=== PATIENT | male | born 1980 | race Caucasian/White ===

== ENCOUNTER 2023-11-03 15:51 | Outpatient (AMB) | payer BC, SELFPAY ==
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
[2023-11-03 15:59] VITALS: BP 110/80; PULSE 67; O2SAT 98; BMI 28.1
== END 2023-11-04 08:25 | disposition home or self-care (01) ==
PROVIDERS: PCP Family Medicine; Visit Provider Nurse Practitioner Family
DX: G24.3 Spasmodic torticollis (principal)
CPT/HCPCS: 99204

== ENCOUNTER → 2023-11-03 15:51 | Outpatient (BNVA) | payer BC, SELFPAY | PROVIDERS: PCP Family Medicine; Visit Provider Nurse Practitioner Family ==

== ENCOUNTER 2023-11-05 11:58 | Outpatient (REF) | payer BC, SELFPAY ==
[2023-11-05 12:13] LABS: MANUAL DIFF FLAG NO
[2023-11-05 12:48] LABS: Basophils Absolute Auto 0.1 X10*3/uL (0.0-0.2); Eosinophils Absolute Auto 0.1 X10*3/uL (0.0-0.4); Eosinophils Percent Auto 1.3 % (0-4); Hematocrit 43.8 % (42.0-52.0); Hemoglobin 15.1 g/dl (14.0-18.0); Imm Gran Abs Auto 0.01 X10*3/uL (0.00-0.03); Imm Gran Pct Auto 0.2 % (0.0-0.4); Lymphocytes Absolute Auto 1.6 X10*3/uL (1.2-4.9); Lymphocytes Percent Auto 25.6 % (20-40); Mean Corpuscular HGB Conc 34.5 g/dl (31.0-36.0); Mean Corpuscular Hemoglobin 31.3 pg (27.0-33.0); Mean Corpuscular Volume 90.7 fL (80.0-98.0); Mean Platelet Volume 10.8 fL (9.4-12.4); Monocytes Absolute Auto 0.5 X10*3/uL (0.1-1.2); Monocytes Percent Auto 8.9 % (2-11); Neutrophils Absolute Auto 3.9 x10*3/uL (2.0-8.3); Platelet Count 231 X10*3/uL (160-400); Red Blood Count 4.83 X10*6/uL (4.60-5.80); White Blood Count 6.1 X10*3/uL (4.8-10.8)
[2023-11-05 13:06] LABS: Alanine Aminotransferase 42 U/L (0-40); Albumin Level 4.5 g/dL (3.5-5.0); Alkaline Phosphatase 61 U/L (39-117); Anion Gap 11 (12-20); Aspartate Amino Transferase 38 U/L (5-37); Bilirubin Total 0.7 mg/dL (0.0-1.0); Blood Urea Nitrogen 15 mg/dL (9-16); Calcium 9.9 mg/dL (8.4-10.2); Carbon Dioxide 29 mmol/L (22-29); Chloride 102 mmol/L (96-108); Estimated Glomerular Filt Rate > 60; Glucose Random 111 mg/dL (60-115); Potassium 3.7 mmol/L (3.3-5.1); Sodium 138 mmol/L (135-145); Total Protein 7.7 g/dL (6.5-8.0)
[2023-11-05 13:16] LABS: Rheumatoid Factor < 13.0 IU/mL (<15.0)
[2023-11-05 13:30] LABS: Erythrocyte Sedimentation Rate 2 MM/HR (0-15)
[2023-11-05 13:40] LABS: Folate 8.7 ng/mL (> or = 4.0); Vitamin B12 899 pg/mL (200-900)
[2023-11-08 16:13] LABS: CRP High Sensitivity 0.6 mg/L
[2023-11-12 13:28] LABS: Anti Nuclear Antibody Screen POSITIVE (NEGATIVE)
== END 2023-11-05 11:59 | disposition home or self-care (01) ==
LOC: HO.LAB 11:58
PROVIDERS: PCP Family Medicine; Visit Provider Nurse Practitioner Family
DX: R25.1 Tremor, unspecified (principal); M62.838 Other muscle spasm
CPT/HCPCS: 36415; 72052; 80053; 82550; 82607; 82746; 83735; 85025; 85652; 86038; 86039; 86141; 86431

== ENCOUNTER 2023-11-25 14:50 | Outpatient (REF) | payer BC, OTHER, SELFPAY ==
[2023-11-25 18:13] LABS: Erythrocyte Sedimentation Rate 5 MM/HR (0-15)
[2023-11-25 18:17] LABS: Alanine Aminotransferase 34 U/L (0-40); Albumin Level 4.2 g/dL (3.5-5.0); Alkaline Phosphatase 56 U/L (39-117); Anion Gap 13 (12-20); Aspartate Amino Transferase 37 U/L (5-37); Bilirubin Total 0.2 mg/dL (0.0-1.0); Blood Urea Nitrogen 21 mg/dL (9-16); C Reactive Protein < 0.10 mg/dL (< or = 0.50); Calcium 9.4 mg/dL (8.4-10.2); Carbon Dioxide 27 mmol/L (22-29); Chloride 106 mmol/L (96-108); Estimated Glomerular Filt Rate > 60; Glucose Random 71 mg/dL (60-115); Potassium 4.1 mmol/L (3.3-5.1); Sodium 142 mmol/L (135-145); Total Protein 7.3 g/dL (6.5-8.0)
[2023-11-25 18:31] LABS: Thyroid Stimulating Hormone 1.45 uIU/mL (0.32-4.0)
[2023-11-26 12:13] LABS: Thyroglobulin Antibodies <1 IU/mL (< or = 1); Thyroid Peroxidase Antibodies <1 IU/mL (<9)
[2023-11-26 17:03] LABS: Complement C3 110 mg/dL (82-185)
[2023-11-26 20:34] LABS: Anti DNA DS Antibody <1 IU/mL; Anti-Centromere B Antibodies <1.0 NEG AI (<1.0 NEG); Antibody to SS-A Antigen <1.0 NEG AI (<1.0 NEG); Antibody to SS-B Antigen <1.0 NEG AI (<1.0 NEG); Scleroderma 70 Antibody <1.0 NEG AI (<1.0 NEG)
[2023-11-29 06:33] LABS: Smooth Muscle Antibody 31 U (<20)
[2023-11-29 14:18] LABS: Anti Nuclear Antibody Screen POSITIVE (NEGATIVE)
[2023-11-30 17:14] LABS: Mitochondrial Antibodies NEGATIVE (NEGATIVE)
[2023-12-01 12:08] LABS: IgA 239 mg/dL (47-310); IgG 1197 mg/dL (600-1640); IgM 149 mg/dL (50-300)
== END 2023-11-25 14:51 | disposition home or self-care (01) ==
LOC: HO.LAB 14:50
PROVIDERS: PCP Family Medicine; Visit Provider Nurse Practitioner Family
DX: R74.8 Abnormal levels of other serum enzymes (principal); R76.8 Other specified abnormal immunological findings in serum; G24.3 Spasmodic torticollis
CPT/HCPCS: 36415; 80053; 82784; 84443; 85652; 86015; 86038; 86039; 86140; 86160; 86225; 86235; 86334; 86376; 86381; 86800

== ENCOUNTER 2023-11-25 14:50 | Outpatient (AMB) | payer BC, SELFPAY ==
--- NOTE | 2023-11-25 14:54 | A.OFFVIS_ITS ---
Intake Vital Signs 11/25/23 14:56 Height 5 ft 6 in Weight 177 lb 11.081 oz BMI 28.7 BP 132/70 Blood Pressure Location Rt brachial Position Sitting Pulse 70 Pulse Source Pulse Oximeter Temp 97 F Temp Source Skin Pulse Oximetry (%) 94 Oxygen Delivery Method Room Air Intake Visit Reasons: abnormal immunological findings in serum Intake Note: New patient, referred by Neuro, presents today for +SWATI, tremors, and spasms. Negative CRP, ESR, and RF. 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 He is here with his and reports that he has been having episodes of twitching in my head that started a few years back , but now happens multiple times daily. This is the first time he is being evaluated for this. He saw the neurologist who ran some test and found something about autoimmune so she wanted me to come here to see about that . He denies known triggers or relievers for the head twitches. Upon inquiry for signs and symptoms of CTD and inflammatory processes, the patient denies Raynaud's phenomenon, butterfly rash on face. There is some possibility of rash when he goes out in the sun; he gets a crusty rash (mustache form) above his upper lip whenever he is is in the sun. He denies nausea and fatigue from the sun. He reports hair thinning hair that he attributes to aging. His mother has alopecia He denies blood or froth in urine. He has not had hx of SOB, chest pain, carditis or pleuritis. The patient denies any history of DVT/PE and does not take a daily aspirin or a blood thinner. Denies fevers, excessive fatigue, unexplained weight-loss or weight-gain Denies: dry, itchy eyes, red burning eyes needing steroids to treat; dry mouth, mouth sores or ulcers; nose bleed; ringing in the ear, Denies abdominal pain, blood or mucous in stool; nausea, vomiting and diarrhea , difficulty swallowing, heartburn. Denies morning stiffness lasting more than 20 mins. Denies plantar facsiitis, Achilles tendonitis, psoriasis, uveitis, recurring joint pain. Malignancy screening: denies personal cancer hx. Colonoscopy : Y/N When Mammogram Y/N When Prostate Y/N When [facility] Medical History (Updated 11/25/23 @ 15:48 [facility] Elevated liver enzymes Skin lesion of scalp Positive SWATI (antinuclear antibody) Cervical dystonia Cervical paraspinal muscle spasm Tremor Surgical History History of vasectomy History of back surgery Family History (Updated 11/25/23 @ 14:59 by RAHEEL Erwin) Maternal Grandfather Cancer Father Vitiligo Other Hx of autoimmune disorder Social History Alcohol intake: current Patient Tobacco Use Status: Never used Tobacco Review of Systems Const All systems reviewed & are unremarkable except as noted in HPI and below Physical Exam Vital Signs: Last Vital Signs Temp 97 F 11/25/23 14:56 Pulse 70 11/25/23 14:56 BP 132/70 11/25/23 14:56 Pulse Ox 94 11/25/23 14:56 Oxygen Delivery Method Room Air 11/25/23 14:56 BMI result Body Mass Index 28.7 APPEARANCE: Patient in no acute distress, groomed, nourished EYES no redness, pupils equal and reactive to light, eyelids normal EARS:? External ear normal, canal clear and tympanic membrane normal. NOSE/SINUS:? Airflow through both nares, no nasal discharge, no bleeding THROAT:? Oral mucosa moist, no ulcerations NECK/HEAD:? No thyromegaly or masses, no adenopathy, trachea midline. HEART:? Regular rhythm, S1-S2 heard, no murmurs, rubs or gallops. LUNG:? Clear to percussion and auscultation ABD:? Normal bowel sounds, no organomegaly, masses or tenderness. EXTREMITIES:? No edema, no calf tenderness, normal peripheral pulses. NEURO:? Oriented and alert x3.? No focal weakness.? Reflexes symmetric.? Gait normal. SKIN:? Scattered erythematous areas on scalp. dry scalp and possible skin atrophy. No objective signs of Raynaud's phenomenon. JOINT EXAM: Cervical Spine:.? Full range of motion without pain; no tenderness. Thoracic Spine:.? No scoliosis.? No tenderness on palpation. Lumbar Spine:.? Alignment normal.? Full range of motion without pain, no tenderness. Chest Wall:.? No tenderness, swelling, increased warmth or erythema. Hands:.? Normal pain-free range of motion without tenderness, swelling, increased warmth or erythema. Able to make a full fist and has a good bolt loader strength. Wrists:.? Normal pain-free range of motion without tenderness, swelling, increased warmth or erythema. Elbows:. Normal pain-free range of motion without tenderness, swelling, increased warmth or erythema. Shoulders:.?? Full range of motion without pain. No tenderness, weakness, swelling, increased warmth or erythema. Hips:.? Full range of motion without pain. Hip bursa:.? No tenderness. Knees:.?? Normal pain-free range of motion without tenderness, swelling, increased warmth or erythema.? There is no effusion or crepitation Ankles:.? Normal pain-free range of motion without tenderness, swelling, increased warmth or erythema. Feet:.? Normal pain-free range of motion without tenderness, swelling, increased warmth or erythema. Tender points:? No tenderness to digital palpation at the occiput, trapezius, second rib, lateral epicondyle, knees, greater trochanter and gluteal area bilaterally. Assessment & Plan Assessment & Plan (1) Positive SWATI (antinuclear antibody): Code(s): R76.8 - Other specified abnormal immunological findings in serum (2) Skin lesion of scalp: Code(s): L98.9 - Disorder of the skin and subcutaneous tissue, unspecified (3) Elevated liver enzymes: Code(s): R74.8 - Abnormal levels of other serum enzymes (4) Cervical dystonia: Code(s): G24.3 - Spasmodic torticollis Plan #+SWATI/Scalp Lesion/Cervial Dystonia: Mr Horvath 43 yoM here for evaluation of head twitches and +SWATI. He has seen neurology for the twitches and as of this writing, neurology has diagnosed cervical dystonia. With regards to the positive SWATI. PE is unremarkable and at this time the patient's history does not support. The scalp findings on PE is worth pursuing. He has s dermatology appt for evaluation skin pigment changes on his hand. I will attach a request to his DERM visit that they evaluate his scalp. His father has vitiligo and so patient is concerned that the pigment changes may be the onset of vitiligo. I will order labs to evaluate the SWATI for relevant antibodies. I did not observe the twitches on PE but I encouraged patient to record any future episodes. #Elevated Liver Enzyme: Upon reviewing the lab results from prior providers, I noticed the liver enzymes were elevated. Patient states he is not aware of this. I do not have any other results to assess chronicity. The patient is not on medications and denies Excess ETOH use. I will order updated labs to assess if resolved. I spent 40 minutes reviewing records, evaluating patient and documenting. Orders: Orders Complement C4 11/25/23 R76.8 - Other specified abnormal immunological findings in serum Erythrocyte Sedimentation Rate 11/25/23 R76.8 - Other specified abnormal immunological findings in serum C Reactive Protein 11/25/23 R76.8 - Other specified abnormal immunological findings in serum Anti-Centromere B Antibodies 11/25/23 R76.8 - Other specified abnormal immunological findings in serum Immunofixation Pnl, Serum 11/25/23 R76.8 - Other specified abnormal immunological findings in serum Immunoglobulins,IgG IgA IgM 11/25/23 R76.8 - Other specified abnormal immunological findings in serum Smooth Muscle Antibody 11/25/23 R74.8 - Abnormal levels of other serum enzymes, R76.8 - Other specified abnormal immunological findings in serum Thyroglobulin Antibodies 11/25/23 R74.8 - Abnormal levels of other serum enzymes, R76.8 - Other specified abnormal immunological findings in serum Thyroid Peroxidase Antibodies 11/25/23 R74.8 - Abnormal levels of other serum enzymes, R76.8 - Other specified abnormal immunological findings in serum Comprehensive Met. Panel 11/25/23 R74.8 - Abnormal levels of other serum enzymes, R76.8 - Other specified abnormal immunological findings in serum SWATI Reflex Titer and Pattern 11/25/23 R76.8 - Other specified abnormal immunological findings in serum Complement C3 11/25/23 R76.8 - Other specified abnormal immunological findings in serum Sjogren's Antibodies 11/25/23 R76.8 - Other specified abnormal immunological findings in serum Scleroderma 70 Antibody 11/25/23 R76.8 - Other specified abnormal immunological findings in serum Anti DNA DS Antibody 11/25/23 R76.8 - Other specified abnormal immunological findings in serum Mitochondrial Antibody 11/25/23 R74.8 - Abnormal levels of other serum enzymes, R76.8 - Other specified abnormal immunological findings in serum Thyroid Stimulating Hormone 11/25/23 R74.8 - Abnormal levels of other serum enzymes, R76.8 - Other specified abnormal immunological findings in serum Referrals Dermatology Referral L98.9 - Disorder of the skin and subcutaneous tissue, unspecified, R76.8 - Other specified abnormal immunological findings in serum Coding Level of Care Code New Pt Level 4 (96676) Diagnoses Positive SWATI (antinuclear antibody) R76.8 Skin lesion of scalp L98.9 Elevated liver enzymes R74.8 Cervical dystonia G24.3
[2023-11-25 14:56] VITALS: BP 132/70; PULSE 70; TEMP 36.1; O2SAT 94; BMI 28.7
== END 2023-11-25 15:48 | disposition home or self-care (01) ==
PROVIDERS: PCP Family Medicine; Visit Provider Nurse Practitioner Family
DX: R76.8 Other specified abnormal immunological findings in serum (principal); L98.9 Disorder of the skin and subcutaneous tissue, unspecified; R74.8 Abnormal levels of other serum enzymes; G24.3 Spasmodic torticollis
CPT/HCPCS: 99204; 99214

== ENCOUNTER 2023-12-28 08:28 | Outpatient (REF) | payer BC, SELFPAY ==
--- NOTE | ~2023-12-28 | MR_ITS ---
EXAMINATION: MR CERVICAL SPINE WITHOUT CONTRAST CLINICAL INFORMATION: 43-year-old with unspecified tremor. COMPARISON: None available. TECHNIQUE: MRI of the cervical spine was obtained using routine sequences without contrast. FINDINGS: ALIGNMENT: Normal. No significant subluxations. CRANIOCERVICAL JUNCTION/C1-C2 ARTICULATIONS: Intact and aligned. VISUALIZED INTRACRANIAL STRUCTURES: Within normal limits. VERTEBRAL BODIES: Vertebral body heights are well maintained. DISC SPACES AND ENDPLATES: The intervertebral disc space heights are well maintained with no significant spondylosis. Endplates appear intact. There is loss of T2-weighted signal from the intervertebral discs between C2-C3 and C5-C6 inclusive. BONE MARROW: No significant marrow-replacing process or bone marrow edema. C2-C3: Normal annular contour. No significant DJD, canal or neural foraminal stenosis. C3-C4: Small central disc protrusion with mild indentation of the ventral thecal sac without cord impingement or canal stenosis. There is uncovertebral spurring, left more than right with no significant facet arthropathy, with moderate left-sided neural foraminal stenosis. C4-C5: Minimal central disc protrusion. No canal stenosis or cord impingement. No significant DJD or neural foraminal stenosis. C5-C6: [id number] broad-based central to right paramedian disc protrusion with flattening of the ventral dural sac asymmetric to the right, without cord impingement. Slight right-sided ventral cord deformity, likely chronic. Mild canal stenosis noted asymmetric to the right. Right-sided uncovertebral disc osteophyte complex moderately narrows the right neural foramen. C6-C7: Normal annular contour. No significant DJD, canal or neural foraminal stenosis. C7-T1: Normal annular contour. Minor facet arthropathy on the left with mild left-sided foraminal narrowing. No canal stenosis. SPINAL CORD: The cervical and visualized upper thoracic spinal cord is otherwise normal in morphology, caliber and signal intensity throughout. EXTRACRANIAL SOFT TISSUES: The visualized extracranial head/neck soft tissues are unremarkable within the limitations of the study. Signal voids are seen in the visualized major arterial and venous structures. MR/MR cervical spine wo con IMPRESSION: 1. Normal spinal alignment. 2. [id number] broad-based central to right paramedian disc protrusion at C5-C6 with mild right-sided ventral cord deformity and mild central canal stenosis without cord compression. Uncovertebral disc osteophyte complex on the right at this level with moderate right-sided neural foraminal stenosis. 3. Small central disc protrusions at C3-C4 and C4-C5 without cord impingement or canal stenosis. Uncovertebral spurring on the left at C3-C4 with moderate left-sided neural foraminal stenosis. 4. Mild facet arthropathy on the left at C7-T1 with mild left-sided foraminal narrowing.
[2023-12-28 09:48] LABS: Amylase 97 U/L (28-100); Bilirubin Total 0.7 mg/dL (0.0-1.0); Lipase 29 U/L (8-78)
[2023-12-29 08:39] LABS: EBV-VCA IgM Ab <36.00 U/mL
[2023-12-31 06:24] LABS: Smooth Muscle Antibody 42 U (<20)
== END 2023-12-28 08:29 | disposition home or self-care (01) ==
LOC: HO.MRI 08:28
PROVIDERS: PCP Family Medicine; Visit Provider Nurse Practitioner Family
DX: R25.1 Tremor, unspecified (principal); R74.8 Abnormal levels of other serum enzymes; R76.8 Other specified abnormal immunological findings in serum; R10.9 Unspecified abdominal pain
CPT/HCPCS: 36415; 72141; 82150; 82247; 83690; 86015; 86664; 86665

== ENCOUNTER 2024-02-04 08:32 | Outpatient (AMB) | payer BC, SELFPAY ==
[2024-02-04 08:39] VITALS: BP 123/83; PULSE 69; BMI 28.0
--- NOTE | 2024-02-04 08:39 | MHC.OFFVIS ---
Intake Vital Signs 02/04/24 08:39 Height 5 ft 6 in Weight 173 lb 11.588 oz BMI 28.0 BP 123/83 Blood Pressure Location Lt brachial Position Sitting Pulse 69 Intake Visit Reasons: unspecified abdominal pain Intake Note: New patient presents to in office visit today for abdominal pain and elevated AST/ALT. CC: Patient states that lately he is not able to eat foods that he used to eat because he gets an upset stomach, abdominal pain, and loose stools. He mentions is mostly healthy foods like vegetables and greens. He states he had a colonoscopy and EGD done about 8 years ago d/t abdominal pain. Patient referred by neuro for lab work-up w/mild elevated AST/ALT. States strong family h/o cholecystitis. Fence Post Cutter Required: No Allergies No Known Allergies Allergy (Verified 02/04/24 08:49) HPI unspecified abdominal pain HPI Details 43-year-old male here for initial evaluation of abdominal pain. He is referred by Partha Good of [facility] in [place]. PMX Functional diarrhea GERD Degenerative disc disease of the lumbar spine Elevated liver enzymes Tremor * SURGICAL HISTORY Lumbar microdiscectomy Vasectomy * ALLERGIES * [employer] LABS: Laboratory Tests 11/05/23 11/25/23 11/25/23 12:12 16:03 16:03 WBC 6.1 Hgb 15.1 Hct 43.8 Plt Count 231 Estimated GFR > 60 Total Bilirubin 0.2 AST 37 ALT 34 Alkaline Phosphata se 56 C-Reactive Protein < 0.10 Amylase Lipase TSH 1.45 12/28/23 09:20 WBC Hgb Hct Plt Count Estimated GFR Total Bilirubin AST ALT Alkaline Phosphata se C-Reactive Protein Amylase 97 Lipase 29 TSH Laboratory Tests 11/25/23 11/25/23 12/28/23 16:03 16:03 09:20 SWATI Screen POSITIVE A SWATI Titer 1:160 H SWATI Pattern A Anti-Mitochondrial Ab NEGATIVE Anti-Smooth Muscle Ab 31 H 42 H EBV Capsid Ag IgG Ab EBV Capsid Ag IgM Index EBV Nuclear Ag IgG Indx 12/28/23 09:20 SWATI Screen SWATI Titer SWATI Pattern Anti-Mitochondrial Ab Anti-Smooth Muscle Ab EBV Capsid Ag IgG Ab 158.00 H EBV Capsid Ag IgM Index <36.00 EBV Nuclear Ag IgG Indx 528.00 H TODAY'S VISIT He is here today with his who is supportive and helps with the history. He was seeing a neurologist who said that there was something in my blood work. He has been having head tremors that have been increasing. The labs show and elevated SMA. Wt stable. He drinks ETOH 1-2 times a week, mostly beer with 1-2 mixed drinks. Definitely not every day. He has been more fatigued, drinking more caffeine (coffee). He has a lot of joint injury issues, he had ankle pain w/o any explanation. He is left handed. Half of the food I eat give me stomach problems. He has trouble with veggies and the traditional gassy foods, he feels he may be allergic to mushrooms which will give him diarrhea. He has a lot of gas and bloating. He tries to use Beano with variable help. Red sauces cause periumbilical abdominal discomfort that is non specific. ETOH is more upsetting especially malt liqueur and ciders give him a rash. He has fairly frequent diarrhea, at times he can relate it to food eaten, but at times it will be for an extended period of time. He had stool testing at that time time that was negative. This was at [facility] [place]. He also had a colonoscopy then that was normal at that time. This was by [facility]. During the last exacerbation the diarrhea lasted for over a month. Brother has digestive issues, father has vitiligo, mother ? thyroid disease, father prostate cancer. There is no known family history of esophageal, stomach, or colon cancer. No FHX of liver disease known. He had prior stool testing, mono/EB testing, hx of lyme bulls eye and joint problems. Request records from [facility]. ROV 6 weeks. [facility] Medical History Elevated liver enzymes Skin lesion of scalp Positive SWATI (antinuclear antibody) Cervical dystonia Cervical paraspinal muscle spasm Tremor Surgical History History of esophagogastroduodenoscopy (EGD) H/O colonoscopy S/P lumbar microdiscectomy History of vasectomy Family History (Updated 02/04/24 @ 08:54 by PATSY Butler) Maternal Grandfather Cancer Father Vitiligo Cholecystitis Mother No problems noted. Other Hx of autoimmune disorder Social History Alcohol intake: current Patient Tobacco Use Status: Never used Tobacco Review of Systems Const Reports body aches, Reports fatigue, Denies fever(s), Denies night sweats, Denies poor appetite and Denies weight loss ENT Reports Normal hearing present, Denies dental pain, Denies dysphagia, Denies hearing loss, Denies mouth pain, Denies odynophagia, Denies throat swelling, Denies tongue swelling and Reports other (Dentition adequate) Card Reports no additional complaints Resp Reports no additional complaints GI Details: Denies abdominal pain, Denies melena, Reports bloating, Denies hematochezia, Denies constipation, Denies GI cramping, Denies dysphagia, Reports excessive flatus, Denies early satiety, Denies heartburn, Reports diarrhea, Denies nausea, Denies odynophagia, Denies vomiting and Denies hematemesis Musc Reports myalgias and Reports arthralgias Skin/Breast Denies pruritus, Denies lesions, Reports rash (With alcohol) and Denies jaundice Neuro Reports Normal hearing present, Reports Neuro-related abnormal movements, Denies Abnormal speech present and Reports tremor(s) Endo Reports fatigue Aller/Immun Denies throat swelling and Denies tongue swelling Physical Exam Vital Signs: Last Vital Signs Pulse 69 02/04/24 08:39 BP 123/83 02/04/24 08:39 BMI result Body Mass Index 28.0 Const General: cooperative, no acute distress, well developed and well groomed Nutritional Appearance: average body habitus and well nourished Orientation/consciousness: oriented to person, oriented to place and oriented to time Limitations: No language barrier HEENT Head: Yes normocephalic and Yes atraumatic Eyes General: appearance normal, both eyes and all related structures Pupils: Equal, round and reactive pupils present Neck Neck: Yes normal visual inspection and Yes no lymphadenopathy Thyroid: Thyroid normal Resp Effort & Inspection: normal respiratory effort and able to speak in complete sentences Auscultation: clear to auscultation bilaterally Cardio Rate: regular rate Rhythm: regular rhythm Heart sounds: Normal, physiologic split S2 sound present Peripheral pulses: radial pulses present and posterior tibial pulses present GI Inspection: No distended and No Abdominal panniculus present Palpation (GI): Soft to palpation, nontender, no guarding, not rigid and No hepatosplenomegaly present Percussion: Yes normal to percussion Auscultation: normal bowel sounds Rectal Exam - Male: Yes deferred Skin General skin exam: no rashes or lesions noted, turgor normal, skin not dry, no jaundice, No spider nevi and no striae Rashes: no rashes Nails: normal Neuro General: oriented to person, oriented to place and oriented to time Cranial nerves: Yes Equal, round and reactive pupils present and Yes Normal hearing present Speech: No Abnormal speech present Extrem General: Yes normal to inspection, No clubbing, No cyanosis and No edema Psych Appearance: grossly normal and well kempt Mental Status: mental status grossly normal Speech and movement: Normal speech and movement present Affect: normal affect Attitude: cooperative Thought process: Normal thought process present and not confabulating Thought content: Normal thought content present Insight: Fair insight present (Psych) and Limited insight present (Psych) Judgement: Fair judgement present (Psych) and Limited judgement present (Psych) Assessment & Plan Assessment & Plan (1) Diarrhea: Code(s): R19.7 - Diarrhea, unspecified (2) Family history of gallbladder disease: Code(s): Z83.79 - Family history of other diseases of the digestive system (3) Transaminitis: Comment: elevated SMA Code(s): R74.01 - Elevation of levels of liver transaminase levels Plan He is here today with his who is supportive and helps with the history. He was seeing a neurologist who said that there was something in my blood work. He has been having head tremors that have been increasing. The labs show and elevated SMA. Wt stable. He drinks ETOH 1-2 times a week, mostly beer with 1-2 mixed drinks. Definitely not every day. He has been more fatigued, drinking more caffeine (coffee). He has a lot of joint injury issues, he had ankle pain w/o any explanation. He is left handed. Half of the food I eat give me stomach problems. He has trouble with veggies and the traditional gassy foods, he feels he may be allergic to mushrooms which will give him diarrhea. He has a lot of gas and bloating. He tries to use Beano with variable help. Red sauces cause periumbilical abdominal discomfort that is non specific. ETOH is more upsetting especially malt liqueur and ciders give him a rash. He has fairly frequent diarrhea, at times he can relate it to food eaten, but at times it will be for an extended period of time. He had stool testing at that time time that was negative. This was at [facility] [place]. He also had a colonoscopy then that was normal at that time. This was by [facility]. During the last exacerbation the diarrhea lasted for over a month. Brother has digestive issues, father has vitiligo, mother ? thyroid disease, father prostate cancer. There is no known family history of esophageal, stomach, or colon cancer. No FHX of liver disease known. He had prior stool testing, mono/EB testing, hx of lyme bulls eye and joint problems. Request records from [facility]. ROV 6 weeks. Orders: Orders Gamma Glutamyl Transpeptidase Today R74.01 - Elevation of levels of liver transaminase levels Hepatitis A,B,C Profile Today R74.01 - Elevation of levels of liver transaminase levels Liver Fibrosis Pnl Today R74.01 - Elevation of levels of liver transaminase levels T Spot TB Today R74.01 - Elevation of levels of liver transaminase levels Phosphatidylethanol, Blood Today R74.01 - Elevation of levels of liver transaminase levels Liver Panel Today R74.01 - Elevation of levels of liver transaminase levels Ceruloplasmin Today R74.01 - Elevation of levels of liver transaminase levels Alpha Fetoprotein Today R74.01 - Elevation of levels of liver transaminase levels Gliadin Ab Panel Today R19.7 - Diarrhea, unspecified, Z83.79 - Family history of other diseases of the digestive system Transglutaminase IgA Today R19.7 - Diarrhea, unspecified, Z83.79 - Family history of other diseases of the digestive system Rast Allergen Today R19.7 - Diarrhea, unspecified, Z83.79 - Family history of other diseases of the digestive system US abdomen comp w elastography Today R74.01 - Elevation of levels of liver transaminase levels Ferritin Today R74.01 - Elevation of levels of liver transaminase levels HIV Ab/Ag Today R74.01 - Elevation of levels of liver transaminase levels Ammonia Today R74.01 - Elevation of levels of liver transaminase levels Lyme IgG/IgM w/reflex to WB Today R74.01 - Elevation of levels of liver transaminase levels Transglutaminase Ab IgG Today R19.7 - Diarrhea, unspecified, Z83.79 - Family history of other diseases of the digestive system C Reactive Protein Today R19.7 - Diarrhea, unspecified, Z83.79 - Family history of other diseases of the digestive system Prothrombin Time INR Today R74.01 - Elevation of levels of liver transaminase levels US biopsy liver Today R74.01 - Elevation of levels of liver transaminase levels Coding Level of Care Code New Pt Level 3 (36364) Diagnoses Diarrhea R19.7 Family history of gallbladder disease Z83.79 Transaminitis R74.01
== END 2024-02-04 09:34 | disposition home or self-care (01) ==
PROVIDERS: PCP Family Medicine; Visit Provider Nurse Practitioner
DX: R19.7 Diarrhea, unspecified (principal); Z83.79 Family history of other diseases of the digestive system; R74.01 Elevation of levels of liver transaminase levels
CPT/HCPCS: 99203

== ENCOUNTER 2024-02-04 08:32 | Outpatient (REF) | payer BC, SELFPAY ==
[2024-02-04 10:16] LABS: Ammonia 36 umol/L (13-55)
[2024-02-04 10:21] LABS: Prothrombin Time 12.5 SEC (11.1-13.3)
[2024-02-04 11:24] LABS: Alanine Aminotransferase 27 U/L (0-40); Albumin Level 4.3 g/dL (3.5-5.0); Alkaline Phosphatase 56 U/L (39-117); Aspartate Amino Transferase 30 U/L (5-37); Bilirubin Direct 0.2 mg/dL (0.0-0.5); Bilirubin Total 0.5 mg/dL (0.0-1.0); C Reactive Protein < 0.04 mg/dL (< or = 0.50); Gamma Glutamyl Transpeptidase 17 U/L (11-51); Total Protein 7.4 g/dL (6.5-8.0)
[2024-02-04 11:39] LABS: Ferritin 130 ng/mL (20-250)
[2024-02-04 11:43] LABS: HBS Num1 1.23 mIU/mL (0-7.99); HBc Num1 0.07 S/CO (0.00-0.79); HBsAGNum1 0.31 S/CO (0.00-0.99); HIV AB/AG Nonreactive (Nonreactive); HIV Num 1 0.05 S/CO (0.00-0.99); Hepatitis A Antibody IgM 0.15 Index (0-0.79); Hepatitis B Core Antibody Nonreactive (Nonreactive); Hepatitis B Surface Antigen Negative (Negative); ~Hepatitis A Antibody IgM Nonreactive (Nonreactive); ~Hepatitis B Surface Antibody NONREACTIVE (Nonreactive); ~Hepatitis C Antibody Nonreactive (Nonreactive)
[2024-02-06 22:09] LABS: TS Negative Control Passed; TS Panel A 0; TS Panel B 0; TS Positive Control Passed; TSpotTB Negative (Negative)
[2024-02-07 13:45] LABS: Alpha Fetoprotein 3.7 ng/mL (<6.1)
[2024-02-07 18:12] LABS: Lyme Abs Screen <0.90 index
[2024-02-08 19:59] LABS: Gliadin Deamidated IgA Ab 2.8 U/mL; Gliadin Deamidated IgG Ab <1.0 U/mL; Transglutaminase Ab IgG <1.0 U/mL; Transglutaminase IgA <1.0 U/mL
[2024-02-14 10:15] LABS: Ceruloplasmin 26
[2024-02-14 10:16] LABS: Liver Fibrosis Score 0.15; Liver Fibrosis Stage F0; Nec Inflam Act Grade A0; Nec Inflam Act Score 0.08
[2024-02-14 10:19] LABS: FIB-Alpha-2-Macroglobulin 139; FIB-Apolipoprotein A1 107; FIB-Haptoglobin 82
[2024-02-14 10:20] LABS: FIB-GGT 12; FIB-Total Bilirubin 0.5
[2024-02-14 10:21] LABS: FIB-ALT 23
[2024-02-14 10:22] LABS: Phosphatidylethanol 16:0-18:1 NEGATIVE; Phosphatidylethanol 16:0-18:2 NEGATIVE
== END 2024-02-04 08:33 | disposition home or self-care (01) ==
LOC: HO.LAB 08:32
PROVIDERS: PCP Family Medicine; Visit Provider Nurse Practitioner
DX: Z11.4 Encounter for screening for human immunodeficiency virus [HIV] (principal); G24.3 Spasmodic torticollis; M48.02 Spinal stenosis, cervical region; R19.7 Diarrhea, unspecified; R74.01 Elevation of levels of liver transaminase levels; Z83.79 Family history of other diseases of the digestive system; Z11.1 Encounter for screening for respiratory tuberculosis; Z91.09 Other allergy status, other than to drugs and biological substances; Z79.899 Other long term (current) drug therapy
CPT/HCPCS: 36415; 80076; 80321; 81596; 82105; 82140; 82390; 82728; 82977; 85610; 86003; 86140; 86258; 86364; 86481; 86617; 86618; 86704; 86706; 86709; 86803; 87340; 87389

== ENCOUNTER 2024-02-04 10:18 | Outpatient (AMB) | payer BC, SELFPAY ==
--- NOTE | 2024-02-04 10:30 | A.OFFVIS_ITS ---
Intake Vital Signs 02/04/24 10:31 Height 5 ft 6 in Weight 173 lb BMI 27.9 Intake Visit Reasons: 2-3 month f/u -Conf Intake Note: Patient presents for 2-3 month follow up. Tremors are the same. Allergies No Known Allergies Allergy (Verified 02/04/24 10:35) Medication List - Last Reconciled 02/04/24 by EVANS Ghotra No Known Home Meds HPI HPI Comments History of Present Illness Details 43-yr-old male presents for f/u visit. Since the last visit, pt did pull his lower back back w/ RLE sciatica pulling and burning pain. He states the week before, he did realize that he had pulled his lower back- but had pushed through for a week before the back pain/spasm. He did see his PCP- who started him on cyclobenzaprine- this helped some but did make him sleepy. He has paused his exercise routine and weight lifting. He is doing some stretching exercises and walking. He feels that the head tremor and neck tightness/pulling was less during the week that he was on the cyclobenzaprine, but does not know if he was just noticing it as much as he was having such bad back pain. He does continue to notice bothersome involuntary head movements, which is as recorded. His lab results, were notable for positive SWATI 1:160 with pattern A. Patient was thus referred to Rheumatology, where follow-up lab work was notable for elevated smooth muscle antibody. Further testing revealed positive EBV antibody. Upon review with patient, patient denies known course of EBV infection. However he did endorse chronic GI symptoms and patient was referred to GI for further follow-up. He had initial GI consult this morning, and has been advised to undergo further testing. 12/28/23, MR/MR cervical spine wo con IMPRESSION: 1. Normal spinal alignment. 2. Sver-sm-wjewsirp broad-based central to right paramedian disc protrusion at C5-C6 with mild right-sided ventral cord deformity and mild central canal stenosis without cord compression. Uncovertebral disc osteophyte complex on the right at this level with moderate right-sided neural foraminal stenosis. 3. Small central disc protrusions at C3- C4 and C4-C5 without cord impingement or canal stenosis. Uncovertebral spurring on the left at C3-C4 with moderate left-sided neural foraminal stenosis. 4. Mild facet arthropathy on the left at C7-T1 with mild left-sided foraminal narrowing. [facility] Medical History Elevated liver enzymes Skin lesion of scalp Positive SWATI (antinuclear antibody) Cervical dystonia Cervical paraspinal muscle spasm Tremor Surgical History History of esophagogastroduodenoscopy (EGD) H/O colonoscopy S/P lumbar microdiscectomy History of vasectomy Family History Maternal Grandfather Cancer Father Vitiligo Cholecystitis Mother No problems noted. Other Hx of autoimmune disorder Social History Alcohol intake: current Patient Tobacco Use Status: Never used Tobacco Review of Systems Const All systems reviewed & are unremarkable except as noted in HPI and below Physical Exam Vital Signs: BMI result Body Mass Index 27.9 Const General: cooperative and no acute distress Orientation/consciousness: patient oriented x3 Resp Effort & Inspection: normal respiratory effort and able to speak in complete sentences Neuro Other: Intermittent head tremor Right laterocollis. 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 MRI c-spine report and images- results notable for [id number] broad-based central to right paramedian disc protrusion at C5-C6 with mild right-sided ventral cord deformity and mild central canal stenosis without cord compression. Moderate right-sided neural foraminal stenosis. Small central disc protrusions at C3-C4 and C4-C5 without cord impingement or canal stenosis. Moderate left- sided neural foraminal stenosis. Mild facet arthropathy on the left at C7-T1 with mild left-sided foraminal narrowing. Trial Botox for spasmodic torticollis, as patient has bothersome neck tightness and isolated head tremor. OTC Magnesium 400-500mg qhs. May use cyclobenzaprine p.r.n. Patient may continue to exercise, however advised to avoid overhead weight training exercises. Continue increase fluids. Monitor headaches and orthostatic lightheadedness. Follow-up with GI and Rheumatology as scheduled. Case and MRI images were reviewed with Dr. Guerita lanza/vannesa in 2-3 months or sooner prn. Coding Level of Care Code Est Pt Level 4 (42298) Diagnoses Tremor R25.1 Spasmodic torticollis G24.3 Cervical stenosis of spinal canal M48.02 Neuroforaminal stenosis of cervical spine M48.02
[2024-02-04 10:31] VITALS: BMI 27.9
== END 2024-02-04 11:34 | disposition home or self-care (01) ==
PROVIDERS: PCP Family Medicine; Visit Provider Nurse Practitioner Family
DX: G24.3 Spasmodic torticollis (principal); M48.02 Spinal stenosis, cervical region
CPT/HCPCS: 99214

== ENCOUNTER 2024-02-14 07:11 | Day surgery (SDC) | payer BC, SELFPAY ==
[2024-02-14] VITALS (12 sets, daily range): BP systolic 115–130; BP diastolic 72–91; PULSE 57–74; RESP 16; TEMP 36.1–36.5; O2SAT 98–99; BMI 28.2
--- NOTE | ~2024-02-14 | US_ITS ---
Ultrasound-guided liver biopsy History: Elevated LFTs Procedure: Ultrasound-guided liver biopsy Risks and benefits and possible complications were discussed with the patient and consent form was signed. The abdomen was prepped and draped in usual sterile fashion. 1% lidocaine was used for anesthesia. A 17-gauge coaxial needle was inserted through the skin and soft tissues and into the right lobe of the liver. A total of 3, 18-gauge cores were performed. Permanent ultrasound images were archived. 2 Gelfoam torpedoes were inserted through the coaxial and administered into the biopsy tract and at the level of the capsule. The needle was then removed. The specimens were placed in formalin and sent to pathology. The patient tolerated the procedure well. The procedure was performed under moderate sedation with a dedicated nurse for monitoring of vital signs. The patient received a total of 2 Versed, and 100 Fentanyl. Moderate sedation time: 15 min This procedure was performed by Bird Estrada PA-C, and directly supervised by Dr. Muir. US/US biopsy liver Impression: Ultrasound-guided liver biopsy
--- NOTE | 2024-02-14 08:14 | MHC.SHP ---
Pre-Procedural Eval Section A - 24 Hr Update-Section A only Date of Service: 02/14/24 Section B - Complete if H&P > 30 days Chief Complaint: transaminitis , liver bx Details of Present Illness: Elevated LFTS Relevant Family History (Specify if Yes): No Relevant Social History: None Present Medications: see Short Stay Collaborative assessment Medical History: No relevant PMH History of Previous Operations: No relevant previous surgery Allergies: Allergies Allergy/AdvReac Type Severity Reaction Status Date / Time No Known Allergies Allergy Verified 02/04/24 10:35 Review of Systems Sugical H&P ROS: Negative: Constitution, Cardiovascular, Respiratory and Gastrointestinal (no abdominal pain) Exam Surgical H&P Exam: Normal: Heart, Normal: Lungs, Normal: Abdomen and Normal: Skin and Not Evaluated: HEENT Plan Diagnosis/Plan: Unchanged I have reviewed the history and physical and performed a pertinent physical examination on my patient. No changes have occurred unless specified. Time Spent With Patient Time: Total time managing care of this patient today ____ minutes.
[2024-02-14] MEDS: Lidocaine HCl 1 % MPF 5 ML VIAL 10 ML SUBCUT (08:57)
== END 2024-02-14 11:51 | disposition home or self-care (01) ==
PROVIDERS: Physician Assistant Surgical; PCP Family Medicine; Visit Provider Nurse Practitioner
DX: R74.01 Elevation of levels of liver transaminase levels (principal); R74.8 Abnormal levels of other serum enzymes; R10.9 Unspecified abdominal pain; Z83.79 Family history of other diseases of the digestive system; R19.7 Diarrhea, unspecified; Z98.52 Vasectomy status
CPT/HCPCS: 47000; 76942; 86850; 86900; 86901; 88307; 88313; J2250; J2310; J3010

== ENCOUNTER → 2024-02-14 08:04 | Outpatient (BNV) | payer BC, SELFPAY | PROVIDERS: PCP Family Medicine; Visit Provider Physician Assistant Surgical | DX: R74.01 Elevation of levels of liver transaminase levels (principal) | CPT/HCPCS: 47000; 76942 ==

== ENCOUNTER 2024-02-17 08:07 | Outpatient (REF) | payer BC, SELFPAY ==
--- NOTE | ~2024-02-17 | US_ITS ---
EXAMINATION: US COMPLETE ABDOMEN WITH LIVER ELASTOGRAPHY CLINICAL INFORMATION: Elevated transaminase COMPARISON: None available. TECHNIQUE: Real-time imaging of the abdominal viscera. Noninvasive ultrasound liver fibrosis assessment is performed using Dm ElastPQ point quantification shear wave elastography (2D-SWE) with a C5-2 MHz transducer. Multiple elastography samples are obtained. FINDINGS: PANCREAS: Not well visualized due to bowel gas. ABDOMINAL AORTA: The proximal, middle, and distal aortic segments are normal in caliber. INFERIOR VENA CAVA: Visualized portions are normal. LIVER: Liver echotexture is slightly increased. Liver is normal in size and contour. No focal lesion or intrahepatic biliary duct dilatation. The right lobe measures 13 cm in length. The left lobe measures 11.6 cm in length. Portal flow is normal/hepatopedal Shear wave liver elastography median stiffness is 1.34 m/s (reference: normal median stiffness is 1.3 m/s or less). IQR/median stiffness to assess sampling precision is 0.08 (reference: good quality data set is IQR/median stiffness of 0.15 or less). GALLBLADDER: Normal. The gallbladder is physiologically distended without evidence of stones, sludge, polyps, wall thickening or pericholecystic fluid. COMMON BILE DUCT: Normal in caliber measuring 0.5 cm in diameter. RIGHT KIDNEY: Normal. No hydronephrosis. No renal calculi or focal parenchymal lesions. The kidney measures 10 cm in maximum dimension. LEFT KIDNEY: Normal. No hydronephrosis. No renal calculi or focal parenchymal lesions. The kidney measures 10 cm in maximum dimension. SPLEEN: Normal. The spleen measures 10 cm in maximum dimension. FREE FLUID: None. US/US abdomen comp w elastography IMPRESSION: 1. Impression: Slightly echogenic liver. Limited visualization of the pancreas. 2. Liver elastography: In the absence of other known clinical signs, rules out compensated advanced chronic liver disease. Adequate liver sampling. REFERENCE: Society of Radiologists in Ultrasound Liver Stiffness Thresholds (2020): LIVER STIFFNESS THRESHOLDS: *Liver Stiffness equal or less than 1.3 m/s: High probability of being normal. *Liver Stiffness less than 1.7 m/s: In the absence of other known clinical signs, rules out compensated advanced chronic liver disease. *Liver Stiffness 1.7-2.1 m/s: Suggestive of compensated advanced chronic liver disease but need further test for confirmation. *Liver Stiffness over 2.1 m/s: Rules in compensated advanced chronic liver disease. *Liver Stiffness over 2.4 m/s: Suggestive of clinically significant portal hypertension. QUALITY OF DATA SET: *IQR/Median value equal or less than 0.15 implies a quality data set. *IQR/Median value over 0.15 implies a poor quality data set. SIGNIFICANT CHANGE FROM PRIOR EXAM: Significant change if liver stiffness measurement is 10% or greater from prior exam. OTHER CONSIDERATIONS: The stage of liver fibrosis may be overestimated in the setting of acute hepatitis, liver inflammation, elevated liver function tests, hepatic vascular congestion, obstructive cholestasis, non-fasting state, and infiltrative diseases such as amyloidosis and lymphoma. In some patients with NAFLD, the liver stiffness thresholds for compensated advanced chronic liver disease may be lower. In causes other than viral hepatitis and NAFLD, liver stiffness thresholds are not well established.
== END 2024-02-17 08:08 | disposition home or self-care (01) ==
LOC: HO.US 08:07
PROVIDERS: PCP Family Medicine; Visit Provider Nurse Practitioner
DX: R74.01 Elevation of levels of liver transaminase levels (principal)
CPT/HCPCS: 76700; 76981

== ENCOUNTER 2024-03-09 10:00 | Outpatient (RCR) | payer BC, SELFPAY ==
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
--- NOTE | 2024-04-18 15:15 | MHC.PT.DC ---
[facility] [place] [facility] [place] [facility] [place] [facility] [address] Fahad Lopez [address] [phone] F: [phone] F: [phone] F: [phone] F: [phone] Physical Therapy Discharge Report Diagnosis: Spasmodic torticollis and head tremors Date of Surgery: Date of Evaluation: 01/11/24 Date of Discharge: 04/18/24 Treatments to Date: 5 Cancellations to Date: No Shows to Date: Discharge Status: Discharge Summary: Pt was seen for PT from 01/11/24-03/09/24. His last attended appointment was 03/09/24. He is being D/C from skilled PT as he has not attended or called to schedule in > 30 days. Pt current level of function unknown at this time Electronically signed by: Lakshmi Todd, PT, DPT Please sign and return to therapist. Thank you for your referral.
== END 2024-04-18 15:15 | disposition home or self-care (01) ==
LOC: HO.PT 10:00
PROVIDERS: PCP Family Medicine; Visit Provider Nurse Practitioner Family
DX: G24.3 Spasmodic torticollis (principal); M62.838 Other muscle spasm
CPT/HCPCS: 97110; 97140; 97162

== ENCOUNTER 2024-03-17 15:52 | Outpatient (AMB) | payer BC, SELFPAY ==
--- NOTE | 2024-03-17 15:55 | A.OFFVIS_ITS ---
Vital Signs 03/17/24 15:56 Height 5 ft 6 in Weight 172 lb 6.424 oz BMI 27.8 BP 127/83 Blood Pressure Location Lt brachial Position Sitting Pulse 58 Intake Visit Reasons: follow up US/RAST Intake Note: Patient in office today in follow up of US and RAST. CC: No new GI concerns today. 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 He was seeing a neurologist who said that there was something in my blood work. He has been having head tremors that have been increasing. The labs show and elevated SMA. Wt stable. He drinks ETOH 1-2 times a week, mostly beer with 1-2 mixed drinks. Definitely not every day. He has been more fatigued, drinking more caffeine (coffee). He has a lot of joint injury issues, he had ankle pain w/o any explanation. He is left handed. Half of the food I eat give me stomach problems. He has trouble with veggies and the traditional gassy foods, he feels he may be allergic to mushrooms which will give him diarrhea. He has a lot of gas and bloating. He tries to use Beano with variable help. Red sauces cause periumbilical abdominal discomfort that is non specific. ETOH is more upsetting especially malt liqueur and ciders give him a rash. He has fairly frequent diarrhea, at times he can relate it to food eaten, but at times it will be for an extended period of time. He had stool testing at that time time that was negative. This was at [facility]. He also had a colonoscopy then that was normal at that time. This was by [facility]. During the last exacerbation the diarrhea lasted for over a month. Brother has digestive issues, father has vitiligo, mother ? thyroid disease, father prostate cancer. There is no known family history of esophageal, stomach, or colon cancer. No FHX of liver disease known. He had prior stool testing, mono/EB testing, hx of lyme bulls eye and joint problems. Request records from [facility]. ROV 6 weeks. Orders: Orders Gamma Glutamyl Transpeptidase Today R74.01 - Elevation of levels of liver transaminase levels Hepatitis A,B,C Profile Today R74.01 - Elevation of levels of liver transaminase levels Liver Fibrosis Pnl Today R74.01 - Elevation of levels of liver transaminase levels T Spot TB Today R74.01 - Elevation of levels of liver transaminase levels Phosphatidylethanol, Blood Today R74.01 - Elevation of levels of liver transaminase levels Liver Panel Today R74.01 - Elevation of levels of liver transaminase levels Ceruloplasmin Today R74.01 - Elevation of levels of liver transaminase levels Alpha Fetoprotein Today R74.01 - Elevation of levels of liver transaminase levels Gliadin Ab Panel Today R19.7 - Diarrhea, unspecified, Z83.79 - Family history of other diseases of the digestive system Transglutaminase IgA Today R19.7 - Diarrhea, unspecified, Z83.79 - Family history of other diseases of the digestive system Rast Allergen Today R19.7 - Diarrhea, unspecified, Z83.79 - Family history of other diseases of the digestive system US abdomen comp w elastography Today R74.01 - Elevation of levels of liver transaminase levels Ferritin Today R74.01 - Elevation of levels of liver transaminase levels HIV Ab/Ag Today R74.01 - Elevation of levels of liver transaminase levels Ammonia Today R74.01 - Elevation of levels of liver transaminase levels Lyme IgG/IgM w/reflex to WB Today R74.01 - Elevation of levels of liver transaminase levels Transglutaminase Ab IgG Today R19.7 - Diarrhea, unspecified, Z83.79 - Family history of other diseases of the digestive system C Reactive Protein Today R19.7 - Diarrhea, unspecified, Z83.79 - Family history of other diseases of the digestive system Prothrombin Time INR Today R74.01 - Elevation of levels of liver transaminase levels US biopsy liver Today R74.01 - Elevation of levels of liver transaminase levels LABS: Laboratory Tests 12/28/23 02/04/24 09:20 10:01 Ferritin 130 Total Bilirubin 0.5 Direct Bilirubin 0.2 GGT 17 AST 30 ALT 27 Alkaline Phosphatase 56 Ammonia 36 C-Reactive Protein < 0.04 Ceruloplasmin 26 Alpha Fetoprotein 3.7 Anti-Smooth Muscle Ab 42 H Tiss Transglutamin IgG <1.0 Tiss Transglutamin IgA <1.0 Anti-Gliadin IgG Ab <1.0 Gliadin (Deamidat) IgA 2.8 PEth 16:0/18.1 (POPEth) NEGATIVE Lyme Screen IgG & IgM <0.90 Hepatitis A IgM Ab Nonreactive Hep Bs Antigen Negative Hep Bs Antibody NONREACTIVE Hep B Core Total Ab Nonreactive Hepatitis C Ab (EIA) Nonreactive HIV 1&2 Ab/P24 Ag 4thGn Nonreactive TB Test (T-Spot) Com Negative RAST PANEL SHOWS NO SIGNIFICANT FOOD ALLERGIES FIBROSIS STAGING SHOWS F-0 AND IS CONCORDANT WITH THE ELASTOGRAPHY ULTRASOUND OF THE ABDOMEN WITH ELASTOGRAPHY 02/21/24 (F-0) FINDINGS: PANCREAS: Not well visualized due to bowel gas. ABDOMINAL AORTA: The proximal, middle, and distal aortic segments are normal in caliber. INFERIOR VENA CAVA: Visualized portions are normal. LIVER: Liver echotexture is slightly increased. Liver is normal in size and contour. No focal lesion or intrahepatic biliary duct dilatation. The right lobe measures 13 cm in length. The left lobe measures 11.6 cm in length. Portal flow is normal/hepatopedal Shear wave liver elastography median stiffness is 1.34 m/s (reference: normal median stiffness is 1.3 m/s or less). IQR/median stiffness to assess sampling precision is 0.08 (reference: good quality data set is IQR/median stiffness of 0.15 or less). GALLBLADDER: Normal. The gallbladder is physiologically distended without evidence of stones, sludge, polyps, wall thickening or pericholecystic fluid. COMMON BILE DUCT: Normal in caliber measuring 0.5 cm in diameter. RIGHT KIDNEY: Normal. No hydronephrosis. No renal calculi or focal parenchymal lesions. The kidney measures 10 cm in maximum dimension. LEFT KIDNEY: Normal. No hydronephrosis. No renal calculi or focal parenchymal lesions. The kidney measures 10 cm in maximum dimension. SPLEEN: Normal. The spleen measures 10 cm in maximum dimension. FREE FLUID: None. US/US abdomen comp w elastography IMPRESSION: 1. Impression: Slightly echogenic liver. Limited visualization of the pancreas. 2. Liver elastography: In the absence of other known clinical signs, rules out compensated advanced chronic liver disease. Adequate liver sampling. LIVER BIOPSY Received: 02/14/24 Diagnosis Liver, right lobe, biopsy: - Minimal portal chronic inflammation. - No appreciable fibrosis or steatosis. - Minimal iron deposition. See description and comment. Comment: The biopsies are essentially normal appearing with only minimal portal chronic inflammation present. The patient's low-level positive anti smooth muscle antibody is noted; diagnostic features of an autoimmune hepatitis are not present. Please correlate with clinical findings. TODAY'S VISIT He is here today with his who is supportive We review all the labs and I can not find any pathology with his liver even with a liver biopsy. I explained that sometimes autoimmune processes can take time to progress or show symptoms but it is also possible that he simply has a higher than normal cord? normal value for his SMA. It also can be found in other autoimmune diseases such as retroperitoneal fibrosis and even Sjodrens syndrome. The diarrhea workup also has yielded no results. So it is most likely this is functional diarrhea related to anxiety, foods or some other more difficult to define intolerance such as a food additive. I am going to give him a trial of dicyclomine to see if this can help but he does have trouble. I would not give him anything stronger since his diarrheal episodes tend to be intermittent. He is agreeable to a 6 month follow-up and at that time will decide if we need to do anything further. [facility] Medical History (Updated 03/17/24 @ 16:24 by MAYRA Harrison) Diarrhea Elevated liver enzymes Cervical dystonia Cervical paraspinal muscle spasm Skin lesion of scalp Positive SWATI (antinuclear antibody) Tremor Surgical History History of esophagogastroduodenoscopy (EGD) H/O colonoscopy S/P lumbar microdiscectomy History of vasectomy Family History Maternal Grandfather Cancer Father Vitiligo Cholecystitis Mother No problems noted. Other Hx of autoimmune disorder Social History Alcohol intake: current Patient Tobacco Use Status: Never used Tobacco Review of Systems Const Denies fatigue, Denies fever(s), Denies night sweats, Denies poor appetite and Denies weight loss ENT Reports Normal hearing present, Denies dental pain, Denies dysphagia, Denies hearing loss, Denies mouth pain, Denies odynophagia, Denies throat swelling, Denies tongue swelling and Reports other (Dentition adequate) Card Reports no additional complaints Resp Reports no additional complaints GI Details: Denies abdominal pain, Denies melena, Denies bloating, Denies hematochezia, Denies constipation, Denies GI cramping, Denies dysphagia, Denies excessive flatus, Denies early satiety, Denies heartburn, Reports diarrhea, Denies nausea, Denies odynophagia, Denies vomiting and Denies hematemesis Skin/Breast Denies pruritus, Denies lesions, Denies rash and Denies jaundice Neuro Reports Normal hearing present and Denies Abnormal speech present Endo Denies fatigue Aller/Immun Denies throat swelling and Denies tongue swelling Physical Exam Vital Signs: Last Vital Signs Pulse 58 03/17/24 15:56 BP 127/83 03/17/24 15:56 BMI result Body Mass Index 27.8 Const General: cooperative, no acute distress, well developed and well groomed Nutritional Appearance: average body habitus and well nourished Orientation/consciousness: oriented to person, oriented to place and oriented to time Limitations: No language barrier HEENT Head: Yes normocephalic and Yes atraumatic Eyes General: appearance normal, both eyes and all related structures Pupils: Equal, round and reactive pupils present Neck Neck: Yes normal visual inspection and Yes no lymphadenopathy Thyroid: Thyroid normal Resp Effort & Inspection: normal respiratory effort and able to speak in complete sentences Auscultation: clear to auscultation bilaterally Cardio Rate: regular rate Rhythm: regular rhythm Heart sounds: Normal, physiologic split S2 sound present Peripheral pulses: radial pulses present and posterior tibial pulses present GI Inspection: No distended and No Abdominal panniculus present Palpation (GI): Soft to palpation, nontender, no guarding, not rigid and No hepatosplenomegaly present Percussion: Yes normal to percussion Auscultation: normal bowel sounds Rectal Exam - Male: Yes deferred Skin General skin exam: no rashes or lesions noted, turgor normal, skin not dry, no jaundice, No spider nevi and no striae Rashes: no rashes Nails: normal Neuro General: oriented to person, oriented to place and oriented to time Cranial nerves: Yes Equal, round and reactive pupils present and Yes Normal hearing present Speech: No Abnormal speech present Extrem General: Yes normal to inspection, No clubbing, No cyanosis and No edema Psych Appearance: grossly normal and well kempt Mental Status: mental status grossly normal Speech and movement: Normal speech and movement present Affect: normal affect Attitude: cooperative Thought process: Normal thought process present and not confabulating Thought content: Normal thought content present Insight: Good insight present (Psych) Judgement: Good judgement present (Psych) Results Reviewed Results Reviewed: Laboratory Tests 12/28/23 02/04/24 09:20 10:01 Ferritin 130 Total Bilirubin 0.5 Direct Bilirubin 0.2 GGT 17 AST 30 ALT 27 Alkaline Phosphatase 56 Ammonia 36 C-Reactive Protein < 0.04 Ceruloplasmin 26 Alpha Fetoprotein 3.7 Anti-Smooth Muscle Ab 42 H Tiss Transglutamin IgG <1.0 Tiss Transglutamin IgA <1.0 Anti-Gliadin IgG Ab <1.0 Gliadin (Deamidat) IgA 2.8 PEth 16:0/18.1 (POPEth) NEGATIVE Lyme Screen IgG & IgM <0.90 Hepatitis A IgM Ab Nonreactive Hep Bs Antigen Negative Hep Bs Antibody NONREACTIVE Hep B Core Total Ab Nonreactive Hepatitis C Ab (EIA) Nonreactive HIV 1&2 Ab/P24 Ag 4thGn Nonreactive TB Test (T-Spot) Com Negative RAST PANEL SHOWS NO SIGNIFICANT FOOD ALLERGIES FIBROSIS STAGING SHOWS F-0 AND IS CONCORDANT WITH THE ELASTOGRAPHY ULTRASOUND OF THE ABDOMEN WITH ELASTOGRAPHY 02/21/24 (F-0) FINDINGS: PANCREAS: Not well visualized due to bowel gas. ABDOMINAL AORTA: The proximal, middle, and distal aortic segments are normal in caliber. INFERIOR VENA CAVA: Visualized portions are normal. LIVER: Liver echotexture is slightly increased. Liver is normal in size and contour. No focal lesion or intrahepatic biliary duct dilatation. The right lobe measures 13 cm in length. The left lobe measures 11.6 cm in length. Portal flow is normal/hepatopedal Shear wave liver elastography median stiffness is 1.34 m/s (reference: normal median stiffness is 1.3 m/s or less). IQR/median stiffness to assess sampling precision is 0.08 (reference: good quality data set is IQR/median stiffness of 0.15 or less). GALLBLADDER: Normal. The gallbladder is physiologically distended without evidence of stones, sludge, polyps, wall thickening or pericholecystic fluid. COMMON BILE DUCT: Normal in caliber measuring 0.5 cm in diameter. RIGHT KIDNEY: Normal. No hydronephrosis. No renal calculi or focal parenchymal lesions. The kidney measures 10 cm in maximum dimension. LEFT KIDNEY: Normal. No hydronephrosis. No renal calculi or focal parenchymal lesions. The kidney measures 10 cm in maximum dimension. SPLEEN: Normal. The spleen measures 10 cm in maximum dimension. FREE FLUID: None. US/US abdomen comp w elastography IMPRESSION: 1. Impression: Slightly echogenic liver. Limited visualization of the pancreas. 2. Liver elastography: In the absence of other known clinical signs, rules out compensated advanced chronic liver disease. Adequate liver sampling. LIVER BIOPSY Received: 02/14/24 Diagnosis Liver, right lobe, biopsy: - Minimal portal chronic inflammation. - No appreciable fibrosis or steatosis. - Minimal iron deposition. See description and comment. Comment: The biopsies are essentially normal appearing with only minimal portal chronic inflammation present. The patient's low-level positive anti smooth muscle antibody is noted; diagnostic features of an autoimmune hepatitis are not present. Please correlate with clinical findings. Assessment & Plan Assessment & Plan (1) Transaminitis: Comment: elevated SMA; extensive workup shows normal transaminases (I did not have a way of putting the SMA in the diagnostic list) elastography and fibrosis panel and liver biopsy all are showing normal values. Laboratory Tests 12/28/2402/29/24 09:2009:01 Ferritin 130 Total Bilirubin 0.5 Direct Bilirubin 0.2 GGT 17 AST 30 ALT 27 Alkaline Phosphatase 56 Ammonia 36 C-Reactive Protein < 0.04 Ceruloplasmin 26 Alpha Fetoprotein 3.7 Anti-Smooth Muscle Ab 42 H Tiss Transglutamin IgG <1.0 Tiss Transglutamin IgA <1.0 Anti-Gliadin IgG Ab <1.0 Gliadin (Deamidat) IgA 2.8 PEth 16:0/18.1 (POPEth) NEGATIVE Lyme Screen IgG & IgM <0.90 Hepatitis A IgM Ab Nonreactive Hep Bs Antigen Negative Hep Bs Antibody NONREACTIVE Hep B Core Total Ab Nonreactive Hepatitis C Ab (EIA) Nonreactive HIV 1&2 Ab/P24 Ag 4thGn Nonreactive TB Test (T-Spot) Com Negative RAST PANEL SHOWS NO SIGNIFICANT FOOD ALLERGIES FIBROSIS STAGING SHOWS F-0 AND IS CONCORDANT WITH THE ELASTOGRAPHY ULTRASOUND OF THE ABDOMEN WITH ELASTOGRAPHY 02/21/24 (F-0) FINDINGS: PANCREAS: Not well visualized due to bowel gas. ABDOMINAL AORTA: The proximal, middle, and distal aortic segments are normal in caliber. INFERIOR VENA CAVA: Visualized portions are normal. LIVER: Liver echotexture is slightly increased. Liver is normal in size and contour. No focal lesion or intrahepatic biliary duct dilatation. The right lobe measures 13 cm in length. The left lobe measures 11.6 cm in length. Portal flow is normal/hepatopedal Shear wave liver elastography median stiffness is 1.34 m/s (reference: normal median stiffness is 1.3 m/s or less). IQR/median stiffness to assess sampling precision is 0.08 (reference: good quality data set is IQR/median stiffness of 0.15 or less). GALLBLADDER: Normal. The gallbladder is physiologically distended without evidence of stones, sludge, polyps, wall thickening or pericholecystic fluid. COMMON BILE DUCT: Normal in caliber measuring 0.5 cm in diameter. RIGHT KIDNEY: Normal. No hydronephrosis. No renal calculi or focal parenchymal lesions. The kidney measures 10 cm in maximum dimension. LEFT KIDNEY: Normal. No hydronephrosis. No renal calculi or focal parenchymal lesions. The kidney measures 10 cm in maximum dimension. SPLEEN: Normal. The spleen measures 10 cm in maximum dimension. FREE FLUID: None. US/US abdomen comp w elastography IMPRESSION: 1. Impression: Slightly echogenic liver. Limited visualization of the pancreas. 2. Liver elastography: In the absence of other known clinical signs, rules out compensated advanced chronic liver disease. Adequate liver sampling. LIVER BIOPSY Received: 02/14/24 Diagnosis Liver, right lobe, biopsy: - Minimal portal chronic inflammation. - No appreciable fibrosis or steatosis. - Minimal iron deposition. See description and comment. Comment: The biopsies are essentially normal appearing with only minimal portal chronic inflammation present. The patient's low-level positive anti smooth muscle antibody is noted; diagnostic features of an autoimmune hepatitis are not present. Please correlate with clinical findings. 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 I explained that sometimes autoimmune processes can take time to progress or show symptoms but it is also possible that he simply has a higher than normal cord? normal value for his SMA. It also can be found in other autoimmune diseases such as retroperitoneal fibrosis and even Sjodrens syndrome. The diarrhea workup also has yielded no results. So it is most likely this is functional diarrhea related to anxiety, foods or some other more difficult to define intolerance such as a food additive. I am going to give him a trial of dicyclomine to see if this can help but he does have trouble. I would not give him anything stronger since his diarrheal episodes tend to be intermittent. He is agreeable to a 6 month follow-up and at that time will decide if we need to do anything further Medications: New dicyclomine 20 mg PO QID 120 tabs 3RF 30 days K59.1 - Functional diarrhea Coding Level of Care Code Est Pt Level 3 (36024) Diagnoses Transaminitis R74.01 GERD (gastroesophageal reflux disease) K21.9 Functional diarrhea K59.1
[2024-03-17 15:56] VITALS: BP 127/83; PULSE 58; BMI 27.8
== END 2024-03-17 16:26 | disposition home or self-care (01) ==
PROVIDERS: PCP Family Medicine; Visit Provider Nurse Practitioner
DX: R74.01 Elevation of levels of liver transaminase levels (principal); K21.9 Gastro-esophageal reflux disease without esophagitis; K59.1 Functional diarrhea
CPT/HCPCS: 99213

== ENCOUNTER → 2024-03-17 15:52 | Outpatient (BNVA) | payer BC, SELFPAY | PROVIDERS: PCP Family Medicine; Visit Provider Nurse Practitioner ==